=== PATIENT | female | born 2000 | race African-American/Black ===

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

== ENCOUNTER 2019-10-28 21:48 | Emergency (ER) | payer SELFPAY ==
[~2019-10-28] VITALS: Ht 167.6 cm; Wt 101.7 kg
[2019-10-28 23:56] VITALS: BP 117/72
[2019-10-29] MEDS ORDERED: KETOROLAC TROMETH 60MG/2ML VIAL IM ONE
== END 2019-10-29 01:23 | disposition home or self-care (01) ==
LOC: ER 21:54
DX: S33.5XXA Sprain of ligaments of lumbar spine, initial encounter (principal); M54.16 Radiculopathy, lumbar region; X50.9XXA Other and unspecified overexertion or strenuous movements or postures, initial encounter; Y93.89 Activity, other specified; Y92.89 Other specified places as the place of occurrence of the external cause; Y99.8 Other external cause status
CPT/HCPCS: 72100; 96372